=== PATIENT | female | born 1970 | race Caucasian/White ===

== ENCOUNTER 2017-02-01 08:01 | Day surgery (SDC) | payer OTHER ==
[~2017-02-01] VITALS: Ht 157.5 cm; Wt 63.5 kg
[~2017-02-01 08:01] MED LIST: ADVIL200 MG PO; BENADRYL25 MG PO; KELNOR 1-351 EACH PO; MELATONIN5 M3 PO; TYLENOL EXTRA500 MG PO
[2017-02-01 08:42] VITALS: BP 151/85
[2017-02-01 08:43] VITALS: BP 151/85
[2017-02-01 12:15] VITALS: BP 134/73
[2017-02-01 13:08] VITALS: BP 128/70
== END 2017-02-01 13:26 | disposition home or self-care (01) ==
LOC: SDC 08:01 → 2SOUTH 10:16 → EDSTATUS 10:16 → SDC 10:17
PROC: 0YU50JZ Supplement Right Inguinal Region with Synthetic Substitute, Open Approach (ICD-10-PCS; principal; 2017-02-01)
DX: K40.30 Unilateral inguinal hernia, with obstruction, without gangrene, not specified as recurrent (principal); A69.20 Lyme disease, unspecified; Z87.891 Personal history of nicotine dependence; Z80.1 Family history of malignant neoplasm of trachea, bronchus and lung; Z83.49 Family history of other endocrine, nutritional and metabolic diseases; Z82.49 Family history of ischemic heart disease and other diseases of the circulatory system; Z82.5 Family history of asthma and other chronic lower respiratory diseases; Z88.1 Allergy status to other antibiotic agents
CPT/HCPCS: 88302; C1781; J0690; J1100; J1170; J2250; J2405; J3010